=== PATIENT | female | born 1990 ===

== ENCOUNTER 2017-01-19 08:00 | Inpatient (IN) ==
[2017-01-19] MEDS ORDERED: Penicillin G Potassium 5,000,000 UNIT in D5% in Water (Mini-Bag+) 100 ML IVPB ONE (09:09)
[2017-01-19] MEDS ORDERED: Metoclopramide 10 MG/2 ML VIAL IVP PRN (09:09)
[2017-01-19] MEDS ORDERED: Famotidine 20 MG/2 ML VIAL IVP PRN (09:09)
[2017-01-19] MEDS ORDERED: miSOPROStol 25 MCG TABLET PO ONE (09:10)
[2017-01-19] MEDS ORDERED: *HR* Nalbuphine 20 MG/ML AMPUL IVP PRN (09:14)
[2017-01-19 09:33] LABS: Basophils % 0.3 %; Eosinophils # 0.2 K/mcL (0.0-0.6); Eosinophils % 2.2 %; Hematocrit 36.9 % (35.3-44.9); Hemoglobin 12.2 g/dL (11.5-15.4); Lymphocytes # 2.1 K/mcL (0.6-4.6); Lymphocytes % 26.7 %; Mean Corpuscular HGB Conc 33.1 g/dL (31.6-35.5); Mean Corpuscular Hemoglobin 29.4 pg (28.0-33.3); Mean Corpuscular Volume 88.9 fL (83.0-100.0); Mean Platelet Volume 10.6 fL (9.4-12.4); Monocytes # 0.7 K/mcL (0.0-1.3); Monocytes % 8.8 %; Neutrophils # 4.7 K/mcL (1.6-8.9); Platelet Count 232 K/mcL (140-400); Red Blood Count 4.15 M/mcL (3.82-4.97); Red Cell Distribution Width 14.2 % (11.5-14.5)
[2017-01-19] MEDS: Ringers Solution, Lactated 1,000 ML IVC SCH ×2 (09:33→16:21)
[2017-01-19 09:48] LABS: Alanine Aminotransferase 21 Units/L (0-55); Aspartate Amino Transferase 22 Units/L (5-34); BUN/Creatinine Ratio 11 (6-26); Blood Urea Nitrogen 7 mg/dL (7-20); Lactate Dehydrogenase 203 Units/L (159-327); Uric Acid 4.6 mg/dL (2.6-6.0); eGFR For African Americans > 60 (> 60); eGFR For Non-African Americans > 60 (> 60)
--- NOTE | 2017-01-19 10:13 | OB/GYN History & Physical ---
Date of Encounter: 01/19/17 Time of Encounter: 10:06 Assessment and Plan (1) 39 weeks gestation of Current visit: Yes Status: Acute Admit for elective IOL due to language barrier. SVE 1-2/80/-2 EFW by irish 7 1/2 lbs GBS positive. Denson placed in cervix using sterile technique. Balloon inflated with 30 ml sterile water. Plan for low dose pitocin with denson. AROM when able. Epidural if requested. Anticipate . POC per Dr. Gonzales (2) Positive GBS test Current visit: Yes Status: Acute PCN ppx started. History of Present Illness Chief complaint: IOL HPI: Ms. Ubaldo Beauchamp is a 26 year old female presenting at 39 weeks for elective IOL due to language barrier. 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 This has been otherwise uncomplicated. No complaints today. Good FM. Pt denies history of STD or any medical problems. She is taking PNV. No other medications or substance abuse. She plans to breastfeed. Blood type A positive. Serologies negative. Rubella immune. GBS positive. Past Med Surg Social Fam HX - Past Medical History Medical history: non-contributory Psychiatric history: no psych history - Past Surgical History Surgical History: no surgical history - Social History Smoking Status: Never smoker Smokeless Tobacco Status: No Alcohol use: none Drug use: none - Family History Mother Family Member Ethnicity: Living Status: Still Living Hx Family Cardiac Disorders: No Hx Family Respiratory Disorders: No Hx Family Cancer: No Hx Family GI Disorders: No Hx Family Genitourinary Disorders: No Hx Family Endocrine Disorder: No Hx Family Musculoskeletal Disorders: No Hx Family Neuromuscular Disorders: No Hx Family Neurologic Disorders: No Hx Family HEENT Disorders: No Hx Family Autoimmune Disorders: No Hx Family Reproductive Disorders: No Hx Family Psychosocial Disorders: No Hx Family Medical Disorders: No Obstetrical History - Pregnancies : 2 Para: 0 Ab's: 1 Medications and Allergies Vit/Iron Fumarate/FA [ Tablet] 1 each PO 01/19/17 [History] Allergies No Known Allergies Allergy (Verified 01/19/17 09:27) Review of System OB All systems PM: reviewed and no additional remarkable complaints except as stated Exam - Vital Signs Vital signs: Initial Vital Signs Temp Pulse Resp BP 97.8 F 98 16 132/75 01/19/17 09:09 01/19/17 09:09 01/19/17 09:09 01/19/17 09:09 - Constitutional Constitutional: well developed, well nourished, no acute distress, average body habitus - HEENT HEENT: Mucus Membranes Moist - Lungs Respiratory exam: CTAB - Cardiovascular Cardiovascular exam: RRR, +S1, +S2 - Abdomen Abdomen: Present: gravid, non tender - Extremities Extremities exam: normal inspection - Vagina Vagina: Present: normal moisture - Cervix Dilation: 2 (1-2) Effacement: 80 Station: -2 - Anus/Rectum Anus/Rectum: Present: normal perianal skin Results Result Diagrams: 01/19/17 08:50 01/19/17 08:50 All other labs normal. - VTE Reasons for not Prescribing Prophylaxis: Treatment not Indicated - Low risk for VTE
[2017-01-19] MEDS ORDERED: Bupivacaine-MPF 0.25% 10 ML VIAL EP ONE (10:59)
[2017-01-19] MEDS ORDERED: *HR* FentaNYL (PF) 100 MCG/2 ML VIAL EP ONE (10:59)
--- NOTE | 2017-01-19 10:59 | Anesthesia Evaluation PreOp ---
Date of Encounter: 01/19/17 Time of Encounter: 10:57 - Past History Planned Operation: HERVE Cardiac History: Denies any Significant Hx Pulmonary History: Denies Any Significant HX Other Medical History: Denies Any Significant HX Anesthesia History: No Prior Anesthetic Complications, Past Anesthesia (never had any procedure requiring neuraxial anesthesia) : No Alcohol Use: none Drug use: none Medications and Allergies Vit/Iron Fumarate/FA [ Tablet] 1 each PO 01/19/17 [History] Allergies No Known Allergies Allergy (Verified 01/19/17 09:27) - Meds/Allergy Pre-op Review Medications Reviewed: Yes Allergies Reviewed: Yes Beta Blockers on Current Med List: No Anesthesia Results - Labs 01/19/17 08:50 01/19/17 08:50 Anesthesia Exam O2 Sat Height 1.6 m Weight 81.647 kg Vital Signs Temp Pulse Resp BP 97.8 F 98 16 132/75 01/19/17 09:09 01/19/17 09:09 01/19/17 09:09 01/19/17 09:09 NPO (# of Hours): >8hrs Pain Scale: 8 Pain Scale Used: Numeric (1 - 10) - HEENT Pupil (Motor): Pupils equal Mallampati: II Teeth: Normal Oral Opening: Greater than 3 - SHIPPING CLERK LOC: Oriented SHIPPING CLERK Motor: Normal RUE, Normal LUE, Normal RLE, Normal LLE, Normal Face SHIPPING CLERK Sensory: Normal: RUE, LUE, RLE, LLE, Face - Cardiac Rhythm: Regular Murmur: None - Pulmonary Breath Sounds: bilateral Clear Respiratory Effort: Symmetrical Anesthesia Assess/Plan ASA Score: 2 Modified Ploy Scale for Level of Consciousness: Anixous, agitated or restless Anesthetic Plan: Regional Autologous Blood: No Monitoring Plan: Standard Monitors Recovery Plan: Other
[2017-01-19] MEDS ORDERED: Epidural Premix (fent/bupiv) 110 ML EP SCH (11:00)
[2017-01-19] MEDS ORDERED: Oxytocin 20 units/ LR 1000 mL 20 UNIT/1,000 ML BAG IVC SCH (11:15)
[2017-01-19] MEDS ORDERED: *HR* FentaNYL (PF) 100 MCG/2 ML VIAL ONE (11:17)
[2017-01-19] MEDS ORDERED: Epidural Premix (fent/bupiv) 110 ML EP ONE ×2 (11:17→23:02)
[2017-01-19] MEDS ORDERED: Bupivacaine-MPF 0.25% 10 ML VIAL ONE (11:17)
[2017-01-19] MEDS ORDERED: Oxytocin 20 units/ LR 1000 mL 20 UNIT/1,000 ML BAG IVC ONE (11:19)
[2017-01-19] MEDS: Penicillin G Potassium 2,500,000 UNIT in D5% in Water 100 ML IVPB SCH ×2 (13:35→17:35)
--- NOTE | 2017-01-19 14:23 | OB Labor Progress Note ---
Date of Encounter: 01/19/17 Time of Encounter: 14:20 Labor Progress Note - Subjective Subjective: Pt reports vaginal pressure but no cramping pain at this time. - Cervix Cervix: 4/80/-1 - Heart Tones Heart Tones: Category I - Honea Path Honea Path: 3.5-4 minutes - Interventions Interventions: AROM for small amount clear fluid. IUPC placed. - Plan Plan: Continue pitocin titration. Nubain or epidural when requested. Anticipate .
--- NOTE | 2017-01-19 16:57 | Anesthesia Procedures ---
Date of Encounter: 01/19/17 Time of Encounter: 16:55 Procedures: Anesthesia - Epidural/Spinal Patient ID/Chart reviewed: Yes Patient examined: Yes OB Eval: Gestational age: 39 weeks 4 days OB Eval: : 2 OB Eval: Hx Para: 0 OB Eval: Dilated at (cm): 4 OB Eval: Contractions: Non-stressed pattern Consent Obtained: Yes Supplemental Oxygen: None/Room Air Site Prep: Aseptic Technique, Sterile prep and drape, Povidone-Iodine 1% Patient position: upright Local Anesthetic: Lidocaine 1% Amount of Local Anesthetic used: 3 Touhy Needle Gauge: 18 Touhy Needle Depth (cm): 5 Catheter Depth at Skin (cm): 12 (placed at 1640) Test Dose (1.5% Lido + Epi): Volume given (mls): 5 (given in 2 equally divided doses over a period of 5 min) Test Dose Result: Negative Loading Dose: 0.25% Marcaine (mls): 5 Loading Dose: Fentanyl (mcg): 100 Loading Dose Administered: Thru Catheter Infusion Med: 0.125% Bupivacaine w/ 2 mcg/ml Fentanyl Infusion Rate (mls/hr): 12 (w/ demand bolus of 4mL q20min PRN) Catheter Secured in Place: Tegaderm, Tape Interspace Used: L3-L4 Loss of Resistance (PILY): Yes Blood: No CSF: No Paresthesia: No Vitals + FHT's: please refer to Valarie's electronic documentation for VS.
[2017-01-19] MEDS ORDERED: Ondansetron 4 MG/2 ML VIAL IVP PRN (21:49)
[2017-01-19] MEDS ORDERED: Acetaminophen 325 MG TABLET PO ONE (23:08)
--- NOTE | 2017-01-20 03:35 | Anesthesia Progress Note ---
Date of Encounter: 01/20/17 Time of Encounter: 03:33 Anesthesia Note - Note Note: Called to patient bedside to evaluate breakthrough labor pain. Patient rates it 9/10 and describes it as bilateral lower pelvic pain. Patient positioned onto back and 5mL of 0.25% bupivicaine administered via epidural catheter. Upon entering room 15 min later, patient was snoring although she states that her pain is not better. VSS 01/20/17 03:33
[2017-01-20] MEDS ORDERED: Epidural Premix (fent/bupiv) 110 ML EP ONE (04:43)
[2017-01-20] MEDS ORDERED: Lidocaine 1% 20 ML MDV ONE (07:41)
--- NOTE | 2017-01-20 08:35 | OB/GYN Procedure Note ---
Delivery - Delivery Date: 01/20/17 Provider: Trace Gonzales Delivery induction: denson Delivery augmentation: rupture of membranes, pitocin - Infant (s) A Infant Delivery Date: 01/20/17 Position: BREANNA Gender: Male Viability: Viable Shoulder Dystocia: encountered Shoulder Dystocia Maneuvers: Luis Enrique maneuver, suprapubic pressure Placenta: spontaneous Cord: 3 umbilical vessels - Repair Episiotomy: none Laceration Description: Perineal - 3rd Degree - Complications Delivery complications: none - Disposition Mom disposition: stable in LDR disposition: stable in LDR
[2017-01-20] MEDS ORDERED: Rho Immune Globulin 1,500 UNIT SYRINGE IM PRN (11:18)
[2017-01-20] MEDS ORDERED: Acetaminophen 325 MG TABLET PO PRN ×2 (11:18→17:40)
[2017-01-20] MEDS ORDERED: Oxytocin 20 units/ LR 1000 mL 20 UNIT/1,000 ML BAG IVC SCH (11:18)
[2017-01-20] MEDS ORDERED: Measles/Mumps/Rubella Vacc 0.5 ML VIAL SQ PRN (11:18)
[2017-01-20] MEDS: Prenatal Vit/FA 1 EACH TABLET PO SCH (14:01)
[2017-01-20] MEDS: Ibuprofen 600 MG TABLET PO PRN (22:16)
[2017-01-21 05:25] LABS: Basophils % 0.2 %; Eosinophils # 0.1 K/mcL (0.0-0.6); Eosinophils % 0.6 %; Hematocrit 23.3 % (35.3-44.9); Hemoglobin 7.6 g/dL (11.5-15.4); Immature Granulocytes % 1.3 % (0-4); Immature Platelets 5.1 % (1.1-6.1); Lymphocytes # 3.4 K/mcL (0.6-4.6); Lymphocytes % 19.4 %; Mean Corpuscular HGB Conc 32.6 g/dL (31.6-35.5); Mean Corpuscular Hemoglobin 29.3 pg (28.0-33.3); Mean Platelet Volume 9.8 fL (9.4-12.4); Monocytes # 1.2 K/mcL (0.0-1.3); Monocytes % 7.1 %; Neutrophils # 12.4 K/mcL (1.6-8.9); Platelet Count 183 K/mcL (140-400); Red Blood Count 2.59 M/mcL (3.82-4.97); Red Cell Distribution Width 14.5 % (11.5-14.5); Segmented Neutrophils % 71.4 %
[2017-01-21] MEDS ORDERED: Benzocaine/Menthol 56 GM AEROSOL SPRAY TP PRN (08:17)
--- NOTE | 2017-01-21 08:17 | Discharge Summary ---
Date of Encounter: 01/21/17 Time of Encounter: 08:15 - Discharge Diagnosis (1) Vaginal delivery Priority: Primary Status: Acute Comments: Patient doing well s/p vaginal delivery. Uterine pain is well controlled. Perineal pain is poorly controlled, visually inspected with no hematoma, well approximated. Ordered dermoplast and tucks pads VSS Able to void and pass gas without difficulty. Lochia moderate and without clots Discharge home today (2) Anemia during puerperium Priority: Primary Status: Acute Comments: VSS, patient asymptomatic Bleeding moderate without clots Increase ferrous sulfate from daily to BID - Discharge Medications Prescriptions: Ibuprofen [Motrin] 600 mg PO Q6HR PRN #30 tablet PRN Reason: Pain Docusate [Colace] 100 mg PO BID #20 capsule Ferrous Sulfate 325 mg PO BIDWM #120 tablet Home Medications: Vit/Iron Fumarate/FA [ Tablet] 1 each PO 01/19/17 [History] Benzocaine/Menthol [place] [Dermoplast [place]] 1 appl TP QID PRN #0 aerosol [Rx] Docusate [Colace] 100 mg PO BID #20 capsule 01/21/17 [Rx] Ferrous Sulfate 325 mg PO BIDWM #120 tablet 01/21/17 [Rx] Ibuprofen [Motrin] 600 mg PO Q6HR PRN #30 tablet 01/21/17 [Rx] Allergies/Adverse Reactions: Allergies No Known Allergies Allergy (Verified 01/19/17 09:27) Data Procedures and tests throughout hospitalization: Laboratory Tests 01/19/17 01/19/17 01/21/17 08:50 08:50 05:10 WBC 7.7 17.4 H D RBC 4.15 2.59 L Hgb 12.2 7.6 L D Hct 36.9 23.3 L MCV 88.9 90.0 MCH 29.4 29.3 MCHC 33.1 32.6 RDW 14.2 14.5 Plt Count 232 183 MPV 10.6 9.8 Immature Gran % 1.0 1.3 Seg Neutrophils % 61.0 71.4 Lymphocytes % 26.7 19.4 Monocytes % 8.8 7.1 Eosinophils % 2.2 0.6 Basophils % 0.3 0.2 Neutrophils # 4.7 12.4 H Lymphocytes # 2.1 3.4 Monocytes # 0.7 1.2 Eosinophils # 0.2 0.1 Basophils # 0.0 0.0 Immature Plt Fraction 5.1 BUN 7 Creatinine 0.61 Est GFR ( Amer) > 60 Est GFR (Non-Af Amer) > 60 BUN/Creatinine Ratio 11 Uric Acid 4.6 AST 22 ALT 21 Lactate Dehydrogenase 203 Labs on day of discharge: Labs from last 24 hours 01/21/17 05:10 WBC 17.4 H D RBC 2.59 L Hgb 7.6 L D Hct 23.3 L MCV 90.0 MCH 29.3 MCHC 32.6 RDW 14.5 Plt Count 183 MPV 9.8 Immature Gran % 1.3 Seg Neutrophils % 71.4 Lymphocytes % 19.4 Monocytes % 7.1 Eosinophils % 0.6 Basophils % 0.2 Neutrophils # 12.4 H Lymphocytes # 3.4 Monocytes # 1.2 Eosinophils # 0.1 Basophils # 0.0 Immature Plt Fraction 5.1 Date of admission: 01/19/17 08:16 Primary care physician: PCP NO Consults: 01/20/17 11:18 Consult to Tile Sprayer [CONS] Routine Comment: Vaginal delivery, consult needed Discharging clinician: Capri Alvarez Anticipated date of discharge: 01/21/17 - Patient Status Disposition: Home, Self-Care Condition: Good Functional capacity at discharge: independent ambulation - Discharge Instructions Instructions: Your [place]'s Appearance (DC), Caring for Your Baby (GEN), Vaginal Delivery (DC), Bleeding (DC) Follow Up With: NO,PCP [Primary Care Provider] - Trace Gonzales MD [Partnered Physician] - - Diet and Activity Activity: increase activity as tolerated Diet: regular diet Hospital Course Reason for admission: induction of labor, IUP at term Delivery: Episiotomy: none Other procedures: none complications: none Discharge diagnosis: IUP at term delivered [place] baby: male Time Attestation: Total time spent providing and/or coordinating discharge services: Time Spent: Less than 30 minutes Exam - Constitutional Vitals: Temp Pulse Resp BP Pulse Ox 97.5 F L 106 14 103/57 97 01/21/17 02:30 01/21/17 02:30 01/21/17 02:30 01/21/17 02:30 01/21/17 02:30 General appearance IM: cooperative, A&O X 3, pleasant - Respiratory Respiratory exam: Present: CTAB - Cardiovascular Cardiovascular exam IM: Present: RRR, +S1, +S2 - GI/Abdominal GI/Abdominal exam IM: normal bowel sounds, soft - External exam: normal external exam Uterine Tone: Firm Uterus Position: 1 Finger Below Umbilicus, Midline - Extremities Exam Extremities exam IM: Present: normal capillary refill, normal inspection, radial pulses palpable and symetrical - Neurological Exam Neurological exam: alert, oriented X3
[2017-01-21 08:27] VITALS: BP 113/71
[2017-01-21] MEDS: Prenatal Vit/FA 1 EACH TABLET PO SCH (10:02)
[2017-01-21] MEDS: Ibuprofen 600 MG TABLET PO PRN (10:03)
== END 2017-01-21 11:50 | disposition home or self-care (01) | DRG 775 ==
LOC: 1NENULAB 08:16 → 1NENUOBS 01-20 10:38
PROVIDERS: ADMIT Obstetrics & Gynecology; ATTEND Obstetrics & Gynecology